=== PATIENT | female | born 1935 | race Caucasian/White ===

== ENCOUNTER 2017-04-25 02:21 | Emergency (ER) | payer MEDICARE, OTHER ==
[~2017-04-25] VITALS: Ht 149.9 cm; Wt 87.3 kg
[~2017-04-25 02:21] MED LIST: ACETAMINOPHEN-1 EAC1 PO; ACETAMINOPHEN325 M1 PO; ALBUTEROL2.5 MG/0.5 INH; ALDACTONE25 MG PO; ALLOPURINOL100 MG PO; AMLODIPINE BESYL5 MG PO; ASPIRIN EC81 MG PO; BENADRYL25 MG PO; CELEXA20 MG PO; CELEXA40 MG PO; CENTRUM SILVER1 EAC3 PO; CLONIDINE HCL0.1 MG PO; CLONIDINE HCL0.2 MG PO; COUMADIN2.5 MG PO; COUMADIN5 MG PO; DEMADEX10 MG PO; DIABETA5 MG PO; DOXYCYCLINE HY100 MG PO; FOLIC ACID0.8 MG PO; FOLIC ACID1 MG PO; GLYBURIDE2.5 MG PO; GLYBURIDE5 MG PO; HUMULIN N100 UNIT/1 SQ; HYDROCODON-ACE1 EA10 PO; IRON325 M1 PO; LASIX40 MG PO; LEVAQUIN500 MG PO; LEVOTHYROXINE100 MCG PO; LOVASTATIN20 MG PO; METOPROLOL TAR100 MG PO; METOPROLOL TART25 MG PO; METOPROLOL TART50 MG PO; MULTI VITAMIN1 EACH PO; NEURONTIN300 MG PO; NORCO 5-325 TA1 EACH PO; NOVOLIN 70100 UNITS/ SUB-Q; OMEPRAZOLE20 M1 PO; OMEPRAZOLE20 MG PO; PERFOROMIS20 MCG/2 M IH; PULMICORT0.25 MG/2 IH; SPIRONOLACTONE25 MG PO; TORSEMIDE20 MG PO; TORSEMIDE5 MG PO; TUDORZA PRESS400 MCG IH; TYLENOL WITH C1 EACH PO; TYLENOL325 MG PO; VITAMIN D31000 UNI1 PO
[2017-04-25] MEDS ORDERED: FEOSOL325 MG PO (02:54)
[2017-04-25] MEDS ORDERED: FOLIC ACID0.4 MG PO (02:55)
[2017-04-25] MEDS ORDERED: NORVASC5 MG PO (02:56)
[2017-04-25] MEDS ORDERED: PERFOROMIS20 MCG/2 M INH (02:57)
[2017-04-25] MEDS ORDERED: SERTRALINE HCL50 MG PO (03:03)
--- NOTE | 2017-04-25 17:59 | EKG ---
[facility] [address] [place] [address] Signed Atrial fibrillation Abnormal ECG When compared with ECG of 24-JAN-2016 10:28, Atrial fibrillation has replaced Sinus rhythm Nonspecific T wave abnormality has replaced inverted T waves in Anterior leads QT has shortened Confirmed by CATERINA CISNEROS MD ([id number]) on 04/25/2017 5:59:08 PM Electronically Signed By: CATERINA CISNEROS MD 04/25/17 1759 PATIENT NAME: JESUS VÁSQUEZ JANELLE Electrocardiogram DATE OF : 33 PHYSICIAN: CATERINA CISNEROS MD REPORT #: [id number] REPORT IS CONFIDENTIAL AND NOT TO BE RELEASED WITHOUT AUTHORIZATION
== END 2017-04-25 05:58 | disposition home or self-care (01) ==
LOC: ED 02:21
DX: R07.89 Other chest pain (principal); I25.2 Old myocardial infarction; E11.40 Type 2 diabetes mellitus with diabetic neuropathy, unspecified; Z87.891 Personal history of nicotine dependence; Z91.041 Radiographic dye allergy status; Z88.0 Allergy status to penicillin; Z88.8 Allergy status to other drugs, medicaments and biological substances; Z88.2 Allergy status to sulfonamides; Z88.5 Allergy status to narcotic agent; Z79.4 Long term (current) use of insulin; Z79.899 Other long term (current) drug therapy
CPT/HCPCS: 71045; 80053; 84484; 85025; 93005; 93010; 99284

== ENCOUNTER 2018-06-12 11:35 | Emergency (ER) | payer MEDICARE, OTHER ==
[~2018-06-12] VITALS: Ht 149.9 cm; Wt 87.3 kg
--- OUTSIDE RECORDS SUMMARY | ~2018-06-12 | XMS | Clinical Summary ---
Demographics + + + | Address | [address] | | | [place] [address] | + + + | Home Phone | | + + + | Preferred Language | Unknown | + + + | Marital Status | | + + + | Orthodox Affiliation | 1009 | + + + | Race | Unknown | + + + | Ethnic Group | Unknown | + + + Author + + + | Author | [facility] | | | and [place] | + + + | Organization | [facility] | | | and [place] | + + + | Address | Unknown | + + + | Phone | Unavailable | + + + Support + + + + + | Name | Relationship | Address | Phone | + + + + + | Erik Gomes | ECON | [address] | | | | | [place] | | | | | [address] | | + + + + + | Kusum Rice | ECON | [place] | | | | | [address] | | + + + + + Care Team Providers + +------+ + | Care Wash Tank Tender Name | Role | Phone | + +------+ + | Juan Paez MD | PP | | + +------+ + Allergies + + + + + + | Active Allergy | Reactions | Severity | Noted | Comments | | | | | Date | | + + + + + + | Clindamycin Hcl | Hives | Low | 05/12/19 | | | | | | 12 | | + + + + + + | Iodine | Hives | Medium | | "I went in to | | | | | | shock after IV dye | | | | | | for pyelogram" | + + + + + + | Penicillin V | Swelling | Low | | "My arm swelled up | | Potassium | | | | after the | | | | | | injection" | + + + + + + | Pentazocine Lactate | Nausea And Vomiting | Low | | "Talwin" | + + + + + + Medications + + + +---------+------+------+-------+ | Medication | Sig | Dispensed | Refills | Star | End | Statu | | | | | | t | Date | s | | | | | | Date | | | + + + +---------+------+------+-------+ | DiphenhydrAMINE | TABS: As needed | | 0 | 09/1 | | Activ | | HCl (BENADRYL PO) | | | | 4/20 | | e | | | | | | 12 | | | + + + +---------+------+------+-------+ | levothyroxine | 1 tablet by mouth | | 0 | 06/2 | | Activ | | (LEVOTHROID) 100 mcg | once daily five days | | | 2/20 | | e | | tablet | a week | | | 10 | | | + + + +---------+------+------+-------+ | glyBURIDE | Take 5 mg by mouth 2 | | 0 | 09/1 | | Activ | | (DIABETA) 5 mg | times daily. | | | 4/20 | | e | | tablet | | | | 12 | | | + + + +---------+------+------+-------+ | omeprazole | Take 10 mg by mouth | | 0 | 09/1 | | Activ | | (PRILOSEC) 10 mg | Daily. | | | 4/20 | | e | | capsule | | | | 12 | | | + + + +---------+------+------+-------+ | multivitamin | 1 tablet by mouth | | 0 | 09/1 | | Activ | | (THERAGRAN) per | once daily | | | 4/20 | | e | | tablet | | | | 12 | | | + + + +---------+------+------+-------+ | citalopram | Take 20 mg by mouth | | 0 | 10/09 | | Activ | | (CELEXA) 40 mg | every morning. | | | 05/28 | | e | | tablet | | | | 12 | | | + + + +---------+------+------+-------+ | FOLIC ACID PO | Take 3 tablets by | | 0 | 10/09 | | Activ | | | mouth Daily. | | | 05/28 | | e | | | | | | 12 | | | + + + +---------+------+------+-------+ | allopurinol | Take 200 mg by mouth | | 0 | 10/09 | | Activ | | (ZYLOPRIM) 100 mg | 2 times daily. | | | 05/28 | | e | | tablet | | | | 12 | | | + + + +---------+------+------+-------+ | gabapentin | Take by mouth. 300 | | 0 | 10/09 | | Activ | | (NEURONTIN) 300 mg | mg in AM, 600 mg at | | | 4 | | e | | capsule | night. | | | 12 | | | + + + +---------+------+------+-------+ | | Take 1-2 tablets by | | 0 | | | Activ | | HYDROcodone-acetamin | mouth every 6 hours | | | | | e | | ophen (NORCO) 5-325 | as needed for Pain. | | | | | | | mg per tablet | | | | | | | + + + +---------+------+------+-------+ | cloNIDine | Take 0.1 mg by mouth | | 0 | | | Activ | | (CATAPRES) 0.1 mg | 2 times daily. 1/2 | | | | | e | | tablet | tab twice daily if | | | | | | | | BP is over 160. | | | | | | + + + +---------+------+------+-------+ | Respiratory | Increase IPAP max to | 1 each | 0 | 12/2 | | Activ | | Therapy Supplies | 18 cm H2O and | | | 2/20 | | e | | MISCIndications: | increase PS to 6 cm | | | 14 | | | | Obstructive sleep | H2O for lifetime. | | | | | | | apnea (adult) | Dx: 327.23 | | | | | | | (pediatric) | | | | | | | + + + +---------+------+------+-------+ | insulin | Inject 43 Units | | 0 | | | Activ | | NPH-insulin regular | under the skin 2 | | | | | e | | 70/30 (HUMULIN, | times daily (before | | | | | | | NOVOLIN 70/30) 100 | meals). | | | | | | | units/mL injection | | | | | | | + + + +---------+------+------+-------+ | Probiotic Product | Take 1 tablet by | | 0 | | | Activ | | (PROBIOTIC DAILY PO) | mouth Daily. As | | | | | e | | | needed | | | | | | + + + +---------+------+------+-------+ | oxygen | Inhale 4 L into the | | 0 | | | Activ | | | lungs continuous. 4L | | | | | e | | | when awake and 3L | | | | | | | | when sleeping | | | | | | + + + +---------+------+------+-------+ | torsemide | Take 20 mg by mouth | | 0 | 04/1 | | Activ | | (DEMADEX) 10 mg | 2 times daily. Take | | | 9/20 | | e | | tablet | 2 tablets twice | | | 16 | | | | | daily | | | | | | + + + +---------+------+------+-------+ | lovastatin | Take 60 mg by mouth | | 0 | | | Activ | | (MEVACOR) 20 mg | nightly. | | | | | e | | tablet | | | | | | | + + + +---------+------+------+-------+ | cholecalciferol | Take 1,000 Units by | | 0 | | | Activ | | (VITAMIN D-3) 1000 | mouth Daily. | | | | | e | | UNITS TABS | | | | | | | + + + +---------+------+------+-------+ | spironolactone | Take 25 mg by mouth | | 0 | | | Activ | | (ALDACTONE) 25 mg | 2 times daily. | | | | | e | | tablet | | | | | | | + + + +---------+------+------+-------+ | metoprolol | Take 100 mg by mouth | | 0 | | | Activ | | tartrate (LOPRESSOR) | 2 times daily. | | | | | e | | 100 mg tablet | | | | | | | + + + +---------+------+------+-------+ | ferrous sulfate | Take 325 mg by mouth | | 0 | | | Activ | | 325 mg tablet | daily (with | | | | | e | | | breakfast). | | | | | | + + + +---------+------+------+-------+ | amLODIPine | Take 5 mg by mouth | | 0 | | | Activ | | (NORVASC) 5 mg | Daily. | | | | | e | | tablet | | | | | | | + + + +---------+------+------+-------+ | ondansetron | Take 4 mg by mouth | | 0 | | | Activ | | (ZOFRAN ODT) 4 mg | every 4 hours as | | | | | e | | disintegrating | needed for Nausea. | | | | | | | tablet | | | | | | | + + + +---------+------+------+-------+ Active Problems + + + | Problem | Noted Date | + + + | Brain lesion | 01/24/2016 | + + + | Elevated troponin | 01/24/2016 | + + + | DM II (diabetes mellitus, type II), controlled | 01/24/2016 | + + + | COPD (chronic obstructive pulmonary disease) | 01/24/2016 | + + + | MIKALA (obstructive sleep apnea) | 01/24/2016 | + + + | Nausea | 01/24/2016 | + + + | Chronic hypoxemic respiratory failure | 06/20/2015 | + + + | Epistaxis, recurrent | 12/19/2014 | + + + | Dysphagia | 03/13/2014 | + + + | Vitamin D deficiency | 01/26/2014 | + + + | Paroxysmal atrial fibrillation | 08/15/2013 | + + + | Bradycardia | 08/15/2013 | + + + | Secondary hyperparathyroidism of renal origin | 08/05/2012 | + + + | Gout | 03/06/2011 | + + + | Iron deficiency anemia | 03/06/2011 | + + + | Hypoxemia | | + + + | Pulmonary hypertension | | + + + | COPD (chronic obstructive pulmonary disease) | | + + + | MIKALA on BiPAP | | + + + | Diabetes mellitus, type 2 | | + + + | Hypertension | | + + + | Hypothyroidism | | + + + | Hyperlipidemia | | + + + | Depression | | + + + | Gastroesophageal reflux disease | | + + + | Osteoarthritis | | + + + | Chronic kidney disease | | + + + + + | Overview: close to dialysis, followed by Dr. Gómez | + + + +---+ | Cataracts, bilateral | | + +---+ | CAD (coronary artery disease) | | + +---+ + + | Overview: s/p [place] in 1994, negative stress test 12/17/2011 | + + Resolved Problems + + + + | Problem | Noted | Resolved | | | Date | Date | + + + + | CHRONIC OBSTRUCTIVE PULMONARY DISEASE, ACUTE EXACERBATION | 05/12/19 | | | | 12 | 3 | + + + + Immunizations + + + + | Name | Dates Previously Given | Next Due | + + + + | INFLUENZA PF 18 Y OR | 11/19/2014, 12/05/2013, 01/08/2013, | | | >,TRIVALENT | 11/09/2011, 11/09/2010 | | | RECOMBINANT | | | + + + + | PNEUMOCOCCAL | 02/22/2014 | | | CONJUGATE 13-VALENT | | | | (PCV13) | | | + + + + | PNEUMOCOCCAL | 02/08/2009, 11/09/2006 | | | POLYSACCHARIDE | | | | 23-VALENT (PPSV23) | | | + + + + | TDAP, (ADOL/ADULT) | 10/14/2011 | | + + + + Family History + +------+ + + | Relation | Name | Status | Comments | + +------+ + + | Father | | | | + +------+ + + | Mother | | | | + +------+ + + Social History + + + +--------+ + | Tobacco Use | Types | Packs/Day | Years | Date | | | | | Used | | + + + +--------+ + | Former Smoker | Cigarettes | 0.3 | 44 | Quit: 11/09/2001 | + + + +--------+ + + +---+---+---+ | Smokeless Tobacco: | | | | | Never Used | | | | + +---+---+---+ + + | Tobacco Cessation: Counseling Given: No | + + + + +---------+ + | Alcohol Use | Drinks/We | oz/Week | Comments | | | ek | | | + + +---------+ + | No | 0 | 0.0 | | | | Standard | | | | | drinks or | | | | | | | | | | equivalen | | | | | t | | | + + +---------+ + + + + | Sex Assigned at | Date Recorded | | | | + + + | Not on file | | + + + + + + + | Job Start Date | Occupation | Industry | + + + + | Not on file | Not on file | Not on file | + + + + + + + + | Travel History | Travel Start | Travel End | + + + + + + | No recent travel history available. | + + Last Filed Vital Signs + + + + | Vital Sign | Reading | Time Taken | + + + + | Blood Pressure | 138/88 | 01/27/2016 1200 PST | + + + + | Pulse | 71 | 01/27/20161003 PST | + + + + | Temperature | 36.8 C (98.2 F) | 01/27/2016699 PST | + + + + | Respiratory Rate | 20 | 01/27/2016699 PST | + + + + | Oxygen Saturation | 96% | 01/27/20161003 PST | + + + + | Inhaled Oxygen | - | - | | Concentration | | | + + + + | Weight | 81.6 kg (179 lb 14.3 | 01/26/2016331 PST | | | oz) | | + + + + | Height | 152.4 cm (5') | 01/24/20161448 PST | + + + + | Body Mass Index | 35.13 | 01/24/20161448 PST | + + + + Plan of Treatment + + + + + | Health Maintenance | Due Date | Last Done | Comments | + + + + + | Vaccine: Zoster (1 | | | | | of 2) | 5 | | | + + + + + | Vaccine: Influenza | | 11/19/2014, 12/05/2013, | | | (Season Ended) | 9 | 01/08/2013, Additional history | | | | | exists | | + + + + + | Vaccine: | | 10/14/2011 | | | Dtap/Tdap/Td (2 - | 2 | | | | Td) | | | | + + + + + | Vaccine: | Completed | 02/22/2014, 02/08/2009, | | | Pneumococcal 65+ | | 11/09/2006 | | | Low/Medium Risk | | | | + + + + + Results Not on filefrom Last 3 Months Insurance + +--------+ +--------+ +---------+--------+ | Payer | Benefi | Subscriber | Effect | Phone | Address | Type | | | t Plan | ID | therese | | | | | | / | | Dates | | | | | | Group | | | | | | + +--------+ +--------+ +---------+--------+ | MEDICARE | MEDICA | [id number] | 02/08/19 | [phone] | | Medica | | | RE | | 00-Pre | 5 | | re | | | PART A | | sent | | | | | | AND B | | | | | | + +--------+ +--------+ +---------+--------+ | COMMERCIAL GENERIC | COMMER | [id number] | | | | PPO | | | CIAL | | 015-Pr | | | | | | PPO | | esent | | | | | | OTHER | | | | | | + +--------+ +--------+ +---------+--------+ + +--------+ +--------+ + + | Guarantor Name | Accoun | Relation to | Date | Phone | Billing Address | | | t Type | Patient | of | | | | | | | | | | + +--------+ +--------+ + + | GomesMandy Soni | Person | Self [birth year] | [address] | | | al/Fam | | 1936 | [phone] | [place] [address] | | | [facility] | | | [address] (Home) | | + +--------+ +--------+ + + Advance Directives Patient has advance care planning documents, and code status on file. For more information, please contact:[facility] [place] [address] + + + + + | Code Status | Date | Date | Comments | | | Activated | Inactivated | | + + + + + | Full Code | 01/24/2016 | 01/27/2016 | | | | 15:51 | 17:26 | | + + + + +
--- OUTSIDE RECORDS SUMMARY | ~2018-06-12 | XMS | Clinical Summary ---
Demographics + + + | Address | [address] | | | [place] [address] | + + + | Home Phone | | + + + | Preferred Language | Unknown | + + + | Marital Status | | + + + | Gnosticist Affiliation | Unknown | + + + | Race | Unknown | + + + | Ethnic Group | Unknown | + + + Author + + + | Author | [facility] | + + + | Organization | [facility] | + + + | Address | Unknown | + + + | Phone | Unavailable | + + + Support + + + + + | Name | Relationship | Address | Phone | + + + + + | Erik Gomes | ECON | [address] | | | | | [place] | | | | | [phone] | | + + + + + | Kusum Rice | ECON | Unknown | | + + + + + Care Team Providers + +------+ + | Care Chief Specialist Leed Name | Role | Phone | + +------+ + | Collins Paez MD | PP | | + +------+ + Allergies + + + + + + | Active Allergy | Reactions | Severity | Noted | Comments | | | | | Date | | + + + + + + | Clindamycin | Nausea Only | Low | 03/06/19 | | | | | | 12 | | + + + + + + | Iodine | Other (See Comments) | | 08/23/19 | abstracted | | | | | 11 | | + + + + + + | Penicillins | Other (See Comments) | | 08/23/19 | abstracted | | | | | 11 | | + + + + + + | Pentazocine Lactate | Other (See Comments) | | 08/23/19 | abstracted | | | | | 11 | | + + + + + + Current Medications + + +--------+---------+------+------+-------+ | Prescription | Sig. | Disp. | Refills | Star | End | Statu | | | | | | t | Date | s | | | | | | Date | | | + + +--------+---------+------+------+-------+ | levothyroxine | Take 100 mcg by | | | | | Activ | | (SYNTHROID, | mouth daily. 6 days | | | | | e | | LEVOTHROID) 100 MCG | a week | | | | | | | tablet | | | | | | | + + +--------+---------+------+------+-------+ | glyBURIDE | Take 5 mg by mouth | | | | | Activ | | (DIABETA) 5 MG | daily with | | | | | e | | tablet | breakfast. | | | | | | + + +--------+---------+------+------+-------+ | gabapentin | Take 300 mg by mouth | | | | | Activ | | (NEURONTIN) 300 MG | 2 (two) times | | | | | e | | capsule | daily. Taking one | | | | | | | | tablet in AM and two | | | | | | | | tablets in PM | | | | | | + + +--------+---------+------+------+-------+ | folic acid | Take 2,400 mcg by | | | | | Activ | | (FOLVITE) 800 MCG | mouth daily. | | | | | e | | tablet | | | | | | | + + +--------+---------+------+------+-------+ | Multiple | Take 1 tablet by | | | | | Activ | | Vitamins-Minerals | mouth daily. | | | | | e | | (MULTIVITAMIN,TX-MIN | | | | | | | | ERALS) tablet | | | | | | | + + +--------+---------+------+------+-------+ | Aclidinium [place] | Inhale into the | | | | | Activ | | (STACY NEVAREZ) | lungs. | | | | | e | | 400 MCG/ACT AEPB | | | | | | | + + +--------+---------+------+------+-------+ | albuterol | Take 2.5 mg by | | | | | Activ | | (PROVENTIL) (2.5 | nebulization every 6 | | | | | e | | MG/3ML) 0.083% | (six) hours as | | | | | | | nebulizer solution | needed. | | | | | | + + +--------+---------+------+------+-------+ | allopurinol | Take 100 mg by mouth | | | 12/2 | | Activ | | (ZYLOPRIM) 100 MG | 2 (two) times | | | 6/20 | | e | | tablet | daily. | | | 13 | | | + + +--------+---------+------+------+-------+ | formoterol | Take 2 mLs by | | | 03/1 | | Activ | | (PERFOROMIST) 20 | nebulization every | | | 4/20 | | e | | MCG/2ML nebulizer | 12 (twelve) hours. | | | 14 | | | | solution | | | | | | | + + +--------+---------+------+------+-------+ | cloNIDine | Take 0.1 mg by mouth | | | | | Activ | | (CATAPRES) 0.1 MG | 2 (two) times | | | | | e | | tablet | daily. Taking two | | | | | | | | tablet BID | | | | | | + + +--------+---------+------+------+-------+ | | Take 1 tablet by | | | | | Activ | | HYDROcodone-acetamin | mouth every 6 (six) | | | | | e | | ophen (NORCO) 5-325 | hours as needed for | | | | | | | MG per tablet | Pain. | | | | | | + + +--------+---------+------+------+-------+ | metoprolol | Take 50 mg by mouth | | | | | Activ | | (LOPRESSOR) 100 MG | 2 (two) times daily. | | | | | e | | tablet | | | | | | | + + +--------+---------+------+------+-------+ | Cholecalciferol | Take 1,000 Units by | | | | | Activ | | 1000 UNITS capsule | mouth daily. | | | | | e | + + +--------+---------+------+------+-------+ | ferrous sulfate, | Take 65 mg of iron | | | | | Activ | | 65 FE, 324 (65 FE) | by mouth as needed. | | | | | e | | MG EC tablet | PRN with nose bleeds | | | | | | + + +--------+---------+------+------+-------+ | insulin | Inject 40 Units into | | | | | Activ | | NPH-insulin regular | the skin 2 (two) | | | | | e | | (NOVOLIN 70/30) | times daily before | | | | | | | (70-30) 100 UNIT/ML | meals. | | | | | | | injection | | | | | | | + + +--------+---------+------+------+-------+ | lovastatin | Take 60 mg by mouth | | | | | Activ | | (MEVACOR) 20 MG | nightly. | | | | | e | | tablet | | | | | | | + + +--------+---------+------+------+-------+ | citalopram | Take 20 mg by mouth | | | | | Activ | | (CELEXA) 20 MG | every morning. | | | | | e | | tablet | | | | | | | + + +--------+---------+------+------+-------+ | omeprazole | Take 10 mg by mouth | | | | | Activ | | (PRILOSEC) 20 MG | every morning before | | | | | e | | capsule | breakfast. | | | | | | + + +--------+---------+------+------+-------+ | diphenhydrAMINE | Take 25 mg by mouth | | | | | Activ | | (BENADRYL) 25 mg | nightly as needed | | | | | e | | capsule | for Itching. | | | | | | + + +--------+---------+------+------+-------+ | spironolactone | TAKE ONE TABLET BY | 60 | 0 | 06/0 | | Activ | | (ALDACTONE) 25 MG | MOUTH TWICE DAILY | tablet | | 7/20 | | e | | tablet | | | | 17 | | | + + +--------+---------+------+------+-------+ | torsemide | TAKE ONE TABLET BY | 60 | 11 | 08/09 | | Activ | | (DEMADEX) 20 MG | MOUTH TWICE DAILY | tablet | | 08/27 | | e | | tablet | | | | 17 | | | + + +--------+---------+------+------+-------+ Active Problems + + + | Problem | Noted Date | + + + | Essential hypertension, benign | 07/16/2015 | + + + + + | Last Assessment & Plan: Hypertension, controlled, continue | | current meds at current doses (clonidine, metoprolol, | | spironolactone, torsemide). | + + + + + | Dyslipidemia | 07/16/2015 | + + + + + | Last Assessment & Plan: Hyperlipidemia, at goal, continue | | current meds at current dose (lovastatin). Recent labs reviewed | | with patient.Lab, 06/03/2015: T Chol: 146, LDL-Chol: 57, HDL-Chol: | | 46, Tri Liver enzymes NML, K: | | 3.8, BUN/Cr: 23/1.5 (GFR 35), glu: 106 | | TSH: 2.95, HgbA1c: 6.3, WBC: 7.4, H/H: 14.3/45.4, plt: 171 | + + + + + | Diabetes mellitus type I | 07/16/2015 | + + + + + | Last Assessment & Plan: DM2, managed by PCP. | + + + + + | Bilateral edema of lower extremity | 07/15/2015 | + + + | Proteinuria | 07/15/2015 | + + + | Heart failure with preserved ejection fraction (HCC) | 05/09/2015 | + + + + + | Last Assessment & Plan: HFpEF. 79yo WF, pleasant, | | somewhat forgetful. She has a history of congestive heart | | failure, chronic edema, but despite this her cardiac workup | | suggests normal ejection fraction, no significant ischemia. She | | has complex medical comorbidities. She is relatively sedentary, | | today she is brought in a wheelchair for ease of transportation, | | she is able to stand on her own. Her edema is essentially | | unchanged, she does not have any orthopnea or PND, however she | | does have exertional shortness of breath and fatigue. No chest | | discomfort is reported. Any palpitations or lightheadedness. | | She denies any new visual disturbances, dysarthria, dysphasia, | | lateralizing signs or symptoms. Although she she does mention a | | recent visit to emergency room, was not feeling well, had some | | difficulty with speech, she states that an MRI was not performed, | | she does not recall a CT scan of her head was performed or not. | | In our discussions with her, she does not recall that she's had | | a previous cardiac workup as well. She does state however she | | does have heart problems, retaining fluid, water on her lungs. | | She was previously seen by one of our cardiologists. Her workup | | is reviewed. I believe her medical therapy as appropriate as | | time. She does have other complicated medical comorbidities, and | | for this reason no further cardiac workup was pursued. She is | | encouraged to restrict her dietary sodium (salt) consumption. | | She is to continue weighing herself daily, she states that her | | usual weight is around 195 pounds. Tolerating medications. No | | changes in therapy. She'll be followed clinically.Last Cath: | | naLast Echo, 04/19/2015 ([facility]): TDS, mild concentric LVH, | | LVEF 65-70%, moderate TR, mild Pulmonary HTN.Last Stress Test, | | 12/17/2011 ([facility] ): Lexiscan, breast attenuation, no | | ischemia, LVEF 76%.ECG, 04/17/2015 ( [facility]): sinus | | bradycardia, 50bpm, 1st degree AVB, PVC's. | + + + + + | Atrial fibrillation, chronic | 04/12/2015 | + + + + + | Last Assessment & Plan: [facility] [facility], today she is in sinus | | rhythm. CHADS2 Score 4 (CHF, HTN, age, DM). On ASA, Hx | | epistaxis. | + + + + + | Vitamin D deficiency | 01/26/2014 | + + + | Secondary hyperparathyroidism, renal | 08/05/2012 | + + + | SHEA (acute kidney injury) | 12/14/2011 | + + + | CKD (chronic kidney disease) stage 3, GFR 30-59 ml/min | 03/06/2011 | + + + + + | Last Assessment & Plan: CKD, Stage 3, followed by Dr Gómez. | + + + + + | Gout | 03/06/2011 | + + + | Iron deficiency | 03/06/2011 | + + + Resolved Problems + + + + | Problem | Noted | Resolved | | | Date | Date | + + + + | CKD (chronic kidney disease), stage III | 07/15/19 | | | | 16 | 6 | + + + + | Hospital discharge follow-up | 04/12/19 | | | | 16 | 6 | + + + + Social History + +-------+ +--------+ + | Tobacco Use | Types | Packs/Day | Years | Date | | | | | Used | | + +-------+ +--------+ + | Former Smoker | | | | Quit: 10/20/2005 | + +-------+ +--------+ + + +---+---+---+ | Smokeless Tobacco: | | | | | Never Used | | | | + +---+---+---+ + + +---------+ + | Alcohol Use [...] on file | | + + + Last Filed Vital Signs + + + + | Vital Sign | Reading | Time Taken | + + + + | Blood Pressure | 127/62 | 11/04/2015 2:06 PM PDT | + + + + | Pulse | 54 | 11/04/2015 2:06 PM PDT | + + + + | Temperature | 36.2 C (97.1 F) | 11/04/2015 2:06 PM PDT | + + + + | Respiratory Rate | 19 | 07/15/2015 12:09 PM PDT | + + + + | Oxygen Saturation | 87% | 11/04/2015 2:06 PM PDT | + + + + | Inhaled Oxygen | - | - | | Concentration | | | + + + + | Weight | 86.7 kg (191 lb 3.2 | 11/04/2015 2:06 PM PDT | | | oz) | | + + + + | Height | 152.4 cm (5') | 11/04/2015 2:06 PM PDT | + + + + | Body Mass Index | 37.34 | 11/04/2015 2:06 PM PDT | + + + + Plan of Treatment + + + + + | Health Maintenance | Due Date | Last Done | Comments | + + + + + | Diabetic Eye Exam | | | | | | 5 | | | + + + + + | Diabetic Foot Exam | | | | | | 5 | | | + + + + + | Vaccine: Zoster (1 | | | | | of 2) | 5 | | | + + + + + | DEXA SCAN SCREENING | | | | | | 0 | | | + + + + + | Hemoglobin A1c | | 01/30/2016, 06/04/2015, | | | | 7 | 09/12/2013, Additional history | | | | | [...] filefrom Last 3 Months Insurance + +--------+ +------+-------+ + | Payer | Benefi | Subscriber | Type | Phone | Address | | | t Plan | ID | | | | | | / | | | | | | | Group | | | | | + +--------+ +------+-------+ + | MEDICARE | MEDICA | [id number] | | | [address] | | | RE | | | | [place], [place] [address] | | | IP-OP | | | | | + +--------+ +------+-------+ + | COMMERCIAL OTHER | COMMER | [id number] | | | | | | CIAL | | | | | | | GENERI | | | | | | | C PLAN | | | | | + +--------+ +------+-------+ + + +--------+ +--------+ + + | Guarantor Name | Accoun | Relation to | Date | Phone | Billing Address | | | t Type | Patient | of | | | | | | | | | | + +--------+ +--------+ + + | MANDY GOMES | Person | Self [birth year] Home: | [address] | | | al/Fam | | 1936 | [phone] [place] | | | [place] | | | [phone] | [phone] | + +--------+ +--------+ + +"
--- OUTSIDE RECORDS SUMMARY | ~2018-06-12 | XMS | Clinical Summary ---
Demographics + + + | Address | [address] | | | [place] [address] | + + + | Home Phone | | + + + | Preferred Language | Unknown | + + + | Marital Status | | + + + | Christianity Affiliation | Unknown | + + + | Race | Unknown | + + + | Ethnic Group | Unknown | + + + Author + + + | Author | [facility] | + + + | Organization | [facility] | + + + | Address | Unknown | + + + | Phone | Unavailable | + + + Support + + + + + | Name | Relationship | Address | Phone | + + + + + | Erik Gomes | ECON | [address] | | | | | [place] | | | | | [address] | | + + + + + | Kusum Rice | ECON | Unknown | | + + + + + Care Team Providers + +------+ + | Care Garbage Pick Up Man Name | Role | Phone | + [...] | | + + +--------+---------+------+------+-------+ | Aclidinium [place] | Inhale into the | | | [...] clinically.Last Cath: | | naLast Echo, 04/19/2015 ([facility]): TDS, mild concentric LVH, | | LVEF 65-70%, moderate TR, mild Pulmonary HTN.Last Stress Test, | | 12/17/2011 ([facility], ): Lexiscan, breast attenuation, no | | [...] +------+-------+ + | MEDICARE | MEDICA | [id number] | | | [address] | | | RE | | | | [place], [place] [address] | | | IP-OP | | | | | + +--------+ +------+-------+ + | COMMERCIAL OTHER | COMMER | [id number] | | | | | | CIAL [...] | [birth year] | Home: | [address] | | | al/Fam | | 1936 | [phone] | [place] | | | [place] | | | [phone] | [phone] | + +--------+ +--------+ + +"
--- OUTSIDE RECORDS SUMMARY | ~2018-06-12 | XMS | Clinical Summary ---
Demographics + + + | Address | [address] | | | [place] [address] | + + + | Home Phone | | + + + | Preferred Language | Unknown | + + + | Marital Status | | + + + | Muslim Affiliation | [phone] | + + + | Race | Unknown | + + + | Ethnic Group | Unknown | + + + Author + + + | Author | [facility] | | | and [place] | + + + | Organization | [facility] | | | and [place] | + + + | Address | Unknown | + + + | Phone | Unavailable | + + + Support + + + + + | Name | Relationship | Address | Phone | + + + + + | Erik Gomes | ECON | [address] | | | | | [place] | | | | | [address] | | + + + + + | Kusum Rice | ECON | [place] | | | | | [phone] | | + + + + + Care Team Providers + +------+ + | Care Director Investment Banking Name | Role | Phone | + [...] + +---+ + + | Overview: s/p SD in 1994, negative stress test 12/17/2011 | [...] +--------+ +---------+--------+ | MEDICARE | MEDICA | [id number] | 02/08/19 | [phone] | | Medica | | | RE | | 00-Pre | 5 | | re | | | PART A | | sent | | | | | | AND B | | | | | | + +--------+ +--------+ +---------+--------+ | COMMERCIAL GENERIC | COMMER | [id number] | | | | PPO | | [...] | | al/Fam | | 1936 | [phone] | [place] [address] | | | [place] | | | [address] (Home) | | + +--------+ +--------+ + + Advance Directives Patient has advance care planning documents, and code status on file. For more information, please contact:[facility] [place] [address] + + + + + | Code Status | Date | Date | Comments | | | Activated | Inactivated | | + + + + + | Full Code | 01/24/2016 | 01/27/2016 | | | | 15:51 | 17:26 | | + + + + +
[~2018-06-12 11:35] MED LIST changes: +FEOSOL325 MG PO; +FOLIC ACID0.4 MG PO; +NORVASC5 MG PO; +NOVOLIN 70100 UNIT/1 SUB-Q; +PERFOROMIS20 MCG/2 M INH; +SERTRALINE HCL50 MG PO
== END 2018-06-12 14:45 | disposition home or self-care (01) ==
LOC: ED 11:35
DX: M25.551 Pain in right hip (principal); I25.2 Old myocardial infarction; J44.9 Chronic obstructive pulmonary disease, unspecified; E11.40 Type 2 diabetes mellitus with diabetic neuropathy, unspecified; I48.91 Unspecified atrial fibrillation; Z87.891 Personal history of nicotine dependence; Z90.710 Acquired absence of both cervix and uterus; Z91.041 Radiographic dye allergy status; Z88.0 Allergy status to penicillin; Z88.2 Allergy status to sulfonamides; Z88.5 Allergy status to narcotic agent; Z79.4 Long term (current) use of insulin; Z79.899 Other long term (current) drug therapy; W01.0XXA Fall on same level from slipping, tripping and stumbling without subsequent striking against object, initial encounter
CPT/HCPCS: 73502; 99283

== ENCOUNTER 2018-09-26 14:16 | Emergency (ER) | payer MEDICARE, OTHER ==
[~2018-09-26] VITALS: Ht 154.9 cm; Wt 78.2 kg
[~2018-09-26 14:16] MED LIST changes: +ASPIR 8181 MG PO; +CITALOPRAM HBR40 MG PO
--- OUTSIDE RECORDS SUMMARY | 2018-09-26 14:18 | XMS ---
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 E.D. VISIT COUNT (12 MO.) 4 [facility] TOTAL 4 NOTE: Visits indicate total known visits. ED/UCC VISIT TRACKING (12 MO.) 09/26/2018 14:16 [facility] [place] TYPE: Emergency COMPLAINT: - HIP PAIN 09/24/2018 16:23 [facility] [place] TYPE: Emergency COMPLAINT: - HIP PAIN/NON INJURY 08/28/2018 10:01 [facility] [place] TYPE: Emergency COMPLAINT: - HIP PAIN NON INJURY DIAGNOSES: - Old myocardial infarction - Acquired absence of both cervix and uterus - Type 2 diabetes mellitus with diabetic neuropathy, unspecified - Allergy status to sulfonamides status - Allergy status to analgesic agent status - Allergy status to other drugs, medicaments and biological substances status - Radiographic dye allergy status - Chronic obstructive pulmonary disease, unspecified - Allergy status to penicillin - long term (current) use of insulin - Pain in right hip - Personal history of nicotine dependence - Other senior care (current) drug therapy 06/12/2018 11:36 [facility] [place] TYPE: Emergency COMPLAINT: - FALL/HIP PAIN DIAGNOSES: - Pain in right hip - Radiographic dye allergy status - Personal history of nicotine dependence - Chronic obstructive pulmonary disease, unspecified - Allergy status to sulfonamides status - Acquired absence of both cervix and uterus - long term (current) use of insulin - Type 2 diabetes mellitus with diabetic neuropathy, unspecified - Allergy status to narcotic agent status - Old myocardial infarction - Unspecified atrial fibrillation - Fall on same level from slipping, tripping and stumbling without subsequent striking against object, initial encounter - Allergy status to penicillin - Other senior care (current) drug therapy INPATIENT VISIT TRACKING (12 MO.) No inpatient visits to display in this time frame [email or web address]
--- NOTE | 2018-09-27 07:17 | CONS ---
[facility] [address] [place], [place] [address] Signed DATE OF CONSULTATION: Requested by the emergency room provider. The patient is an 82-year-old white female who actually fell, it sounds like about two weeks ago. She has been having increasing pain and difficulty with ambulation ever since. She is actually in the emergency room a couple of days ago with hip pain. She was evaluated to have some osteoarthritis and was discharged home. She returns today because of increasing pain and inability to ambulate. Repeat x-rays clearly show a femoral neck fracture, confirmed with a CT scan. I met with the patient and her family. She previously had a left total hip on the left side done here in [place]. However, she apparently became a chronic recurrent dislocator and had to have it revised in [place]. At this time, I discussed with her, the nature of her injury and the fact that she probably will need to consider a total hip replacement, given the amount of arthritis seen in the hip joint. I explained the treatment alternatives along with all the potential risks, benefits, and complications. They have a family discussion and it would appear that the family would be more comfortable if she were to be transferred to [facility] in [place]. surgical procedures done including a daughter who had a hip replacement at [facility] that worked out very well. We told them that the ER staff, until we arrange for her transfer to [facility]. MD SOLA Garcia/MASON /[phone] Copies: ~ Electronically Signed By: JAMEL HICKEY MD 09/27/18 0717 PATIENT NAME: JESUS VÁSQUEZ JANELLE CONSULTATION DATE OF : 33 REPORT #: [id number] PHYSICIAN: JAMEL HICKEY MD PCP: LIZZIE COVINGTON MD REPORT IS CONFIDENTIAL AND NOT TO BE RELEASED WITHOUT AUTHORIZATION
--- NOTE | 2018-09-27 13:56 | EKG ---
[facility] [address] [place] [address] Signed Sinus bradycardia with 1st degree AV block Otherwise normal ECG When compared with ECG of 25-APR-2017 02:23, Sinus rhythm has replaced Atrial fibrillation Vent. rate has decreased BY 44 BPM Nonspecific T wave abnormality no longer evident in Inferior leads Nonspecific T wave abnormality no longer evident in Lateral leads Confirmed by SERGIO CUELLAR DO ([id number]) on 09/27/2018 1:56:26 PM Electronically Signed By: SERGIO CUELLAR DO 09/27/18 1356 PATIENT NAME: JESUS VÁSQUEZ JANELLE Electrocardiogram DATE OF : 33 PHYSICIAN: SERGIO CUELLAR DO REPORT #: [id number] REPORT IS CONFIDENTIAL AND NOT TO BE RELEASED WITHOUT AUTHORIZATION
== END 2018-09-26 21:25 | disposition short-term general hospital (02) ==
LOC: ED 14:16
PROC: 0T2BX0Z Change Drainage Device in Bladder, External Approach (ICD-10-PCS; principal; 2018-09-26)
DX: S72.001A Fracture of unspecified part of neck of right femur, initial encounter for closed fracture (principal); I25.2 Old myocardial infarction; E11.40 Type 2 diabetes mellitus with diabetic neuropathy, unspecified; Z87.891 Personal history of nicotine dependence; Z88.0 Allergy status to penicillin; Z88.2 Allergy status to sulfonamides; Z88.6 Allergy status to analgesic agent; Z88.8 Allergy status to other drugs, medicaments and biological substances; Z91.041 Radiographic dye allergy status; W18.30XA Fall on same level, unspecified, initial encounter
CPT/HCPCS: 51702; 71045; 74176; 80053; 81001; 85025; 93005; 93010; 99285-25; J1170; J1885; J7030

== ENCOUNTER 2019-08-01 01:45 | Emergency (ER) | payer MEDICARE, OTHER ==
[~2019-08-01] VITALS: Ht 154.9 cm; Wt 75.0 kg
[~2019-08-01 01:45] MED LIST changes: +ATORVASTATIN CA20 MG PO; +CATAPRES0.1 MG PO; +LANTUS SOL100 UNIT/1 SUB-Q; +PANTOPRAZOLE SO40 MG PO; +SEROQUEL25 MG PO; +SYMBICORT 16010.2 GM INH
--- OUTSIDE RECORDS SUMMARY | 2019-08-01 01:48 | XMS ---
PreManage Notification: JESUS VÁSQUEZ Security Sanitary Aide Events No recent Security Events currently on file CRITERIA MET - [facility] - Has Care Guidelines CARE PROVIDERS DEMARCUS LEMON [facility] 10/24/2018-Current PHONE: [phone] LIZZIE COVINGTON [facility] 09/26/2018-Current PHONE: [phone] Inga has no Care Guidelines for this patient. Care History Medical/Surgical 10/25/2018 [facility] - PATIENT HAS A FOLLOW UP APT WITH DR LEMON ON 11/28/18. E.DAmada VISIT COUNT (12 MO.) 5 [facility]. TOTAL 5 NOTE: Visits indicate total known visits. ED/UCC VISIT TRACKING (12 MO.) 08/01/2019 01:45 [facility] [place] TYPE: Emergency COMPLAINT: - FALL/R HIP PAIN 10/23/2018 15:08 [facility] [place] TYPE: Emergency COMPLAINT: - POST OP PAIN DIAGNOSES: - Personal history of nicotine dependence - Allergy status to other drugs, medicaments and biological sub - Muscle weakness (generalized) - Other custodial (current) drug therapy - Allergy status to analgesic agent status - Allergy status to sulfonamides status - Unspecified mood [affective] disorder - Radiographic dye allergy status - Type 2 diabetes mellitus with diabetic neuropathy, unspecifie - keno terminal operator (current) use of insulin - Allergy status to penicillin - Old myocardial infarction 09/26/2018 14:16 [facility] [place] TYPE: Emergency COMPLAINT: - HIP PAIN DIAGNOSES: - Radiographic dye allergy status - Allergy status to analgesic agent status - Allergy status to penicillin - Pain in right hip - Allergy status to sulfonamides status - Fall on same level, unspecified, initial encounter - Fracture of unspecified part of neck of right femur, initial - Old myocardial infarction - Type 2 diabetes mellitus with diabetic neuropathy, unspecifie - Personal history of nicotine dependence - Allergy status to other drugs, medicaments and biological sub 09/24/2018 16:23 [facility] [place] TYPE: Emergency COMPLAINT: - HIP PAIN/NON INJURY DIAGNOSES: - Dorsalgia, unspecified - Personal history of nicotine dependence - Other long term acute care registered nurse (current) drug therapy - Old myocardial infarction - keno terminal operator (current) use of aspirin - Allergy status to narcotic agent status - Radiographic dye allergy status - Allergy status to analgesic agent status - Pain in right hip - Allergy status to penicillin - Chronic obstructive pulmonary disease, unspecified - Allergy status to sulfonamides status - Type 2 diabetes mellitus with diabetic neuropathy, unspecifie 08/28/2018 10:01 [facility] [place] TYPE: Emergency COMPLAINT: - HIP PAIN NON INJURY DIAGNOSES: - Old myocardial infarction - Acquired absence of both cervix and uterus - Type 2 diabetes mellitus with diabetic neuropathy, unspecifie - Allergy status to sulfonamides status - Allergy status to analgesic agent status - Allergy status to other drugs, medicaments and biological sub - Radiographic dye allergy status - Chronic obstructive pulmonary disease, unspecified - Allergy status to penicillin - keno terminal operator (current) use of insulin - Pain in right hip - Personal history of nicotine dependence - Other long term acute care registered nurse (current) drug therapy INPATIENT VISIT TRACKING (12 MO.) 09/29/2018 13:30 Alejandra MERRITT TYPE: Rehab COMPLAINT: - RIGTH HIP FRACTURE [email or web address]
[2019-08-01] MEDS ORDERED: NORCO 5-325 TA1 EACH PO (04:42)
== END 2019-08-01 05:10 | disposition home or self-care (01) ==
LOC: ED 01:45
DX: T84.020A Dislocation of internal right hip prosthesis, initial encounter (principal); I25.2 Old myocardial infarction; J44.9 Chronic obstructive pulmonary disease, unspecified; E11.40 Type 2 diabetes mellitus with diabetic neuropathy, unspecified; I48.91 Unspecified atrial fibrillation; Z87.891 Personal history of nicotine dependence; Z91.041 Radiographic dye allergy status; Z88.0 Allergy status to penicillin; Z88.2 Allergy status to sulfonamides; Z88.8 Allergy status to other drugs, medicaments and biological substances; Z88.5 Allergy status to narcotic agent; Z79.899 Other long term (current) drug therapy; Z79.4 Long term (current) use of insulin; Z79.82 Long term (current) use of aspirin; Z96.641 Presence of right artificial hip joint; W01.0XXA Fall on same level from slipping, tripping and stumbling without subsequent striking against object, initial encounter
CPT/HCPCS: 27265; 73502; 99156; 99157; 99284-25; J1170; J2405; J2704; J7030

== ENCOUNTER 2020-07-22 20:29 | Emergency (ER) | payer MEDICARE, OTHER ==
[~2020-07-22] VITALS: Ht 154.9 cm; Wt 75.0 kg
[~2020-07-22 20:29] MED LIST changes: -LANTUS SOL100 UNIT/1 SUB-Q
[2020-07-22] MEDS ORDERED: ALDACTONE25 MG PO (20:51)
--- NOTE | 2020-07-23 08:20 | EKG ---
[facility] [address] [facility] [place], [place] [address] Signed Sinus bradycardia Otherwise normal ECG When compared with ECG of 26-SEP-2018 16:04, T wave inversion no longer evident in Anterior leads Confirmed by SERGIO CUELLAR DO ([id number]) on 07/23/2020 8:20:26 AM Electronically Signed By: SERGIO CUELLAR DO 07/23/20 0820 PATIENT NAME: JESUS VÁSQUEZ JANELLE Electrocardiogram DATE OF : 33 PHYSICIAN: SERGIO CUELLAR DO REPORT #: [id number] REPORT IS CONFIDENTIAL AND NOT TO BE RELEASED WITHOUT AUTHORIZATION
== END 2020-07-22 22:40 | disposition home or self-care (01) ==
LOC: ED 20:29
DX: S00.93XA Contusion of unspecified part of head, initial encounter (principal); W19.XXXA Unspecified fall, initial encounter; I25.2 Old myocardial infarction; J44.9 Chronic obstructive pulmonary disease, unspecified; E11.40 Type 2 diabetes mellitus with diabetic neuropathy, unspecified; I48.91 Unspecified atrial fibrillation; Z87.891 Personal history of nicotine dependence; Z88.0 Allergy status to penicillin; Z88.8 Allergy status to other drugs, medicaments and biological substances; Z88.5 Allergy status to narcotic agent; Z88.2 Allergy status to sulfonamides; Z91.041 Radiographic dye allergy status; Z79.899 Other long term (current) drug therapy; Z79.4 Long term (current) use of insulin
CPT/HCPCS: 70450; 71045; 72125; 80053; 81001; 84484; 85025; 85610; 85730; 93005; 93010; 99285-25

== ENCOUNTER 2020-09-16 21:10 | Observation (INO) | payer MEDICARE, OTHER ==
[~2020-09-16] VITALS: Ht 154.9 cm; Wt 70.5 kg
--- NOTE | 2020-09-17 02:45 | NUR ---
PT TO ROOM 111 FROM ED VIA STRETCHER. ALERT AND ORIENTED. 3PA TO TRANSFER FROM STRETCHER TO BED USING HOVER MAT. PT REPORTS RIGHT HIP PAIN 3/10 WHICH IS TOLERABLE. CMS INTACT. CHRONIC O2/2L IN PLACE. SpO2 100%. RESPIRATIONS EVEN. PT ORIENTED TO ROOM AND NURSE CALL LIGHT. WATER AND JUICE PROVIDED. [employer] IN ROOM FOR ADMISSION.
--- NOTE | 2020-09-17 03:24 | NUR ---
CALL LIGHT ANSWERED. PT UP TO BSC WITH 1PA TO VOID. BACK TO BED WITH 2PA AND FWW. PT QUINN FAIR. INCREASED PAIN WITH MOVEMENT IN RIGHT HIP THAT RADIATES TO LEFT SIDE. PRN FOR PAIN ADMINISTERED. PT DENIES FURTHER NEEDS. CALL LIGTH IN REACH.
--- NOTE | 2020-09-17 05:04 | NUR ---
PT RESTING IN BED WITH EYES CLOSED, NAD.
--- NOTE | 2020-09-17 07:20 | NUR ---
Report received from Jaki MAHER. Pt resting in bed with eyes closed, respirations even and unlabored. 2L O2 NC in place. No needs identified, will continue plan of care.
--- NOTE | 2020-09-17 09:00 | NUR ---
Notified by Dr. Hickey, pt is stating she does not need placement and has family members to care for her. Attempted to call spouse and his phone is not active. Called and spoke with daughter, Mila Romeo. She states her dad is unable to care for her mom and the daughter cannot care for her any longer. She states mom cannot go home. Asked if she, her sister, and her dad would like to come in for a family conference to discuss this. They will be here at 1 pm. Trestle Mainternance Laborer updated.
--- NOTE | 2020-09-17 09:45 | NUR ---
Scheduled medications administered, vitals complete. Assessment complete. IVF infusing WNL. Pt oriented to room, educated regarding fall precautions and policies here at hospital, pt agreeable to this. Pt finishing breakfast at this time.
--- NOTE | 2020-09-17 10:31 | NUR ---
Patient got back to her room from physical therapy. I&Os were completed. Patient recieved water. Physical therapy assisted patient to the toilet. SBA to chair.
--- NOTE | 2020-09-17 11:25 | NUR ---
Pt finished with physical therapy, occupational therapy, MD ramirez. Lidocaine patch applied across lower back. IVF infusing WNL. RACHELLE Prasad in room to assist pt with using bathroom. No further needs at this time
[2020-09-17] MEDS ORDERED: LEVOTHYROXINE50 MCG PO (11:27)
[2020-09-17] MEDS ORDERED: LANTUS SOL100 UNIT/1 SUB-Q (12:45)
[2020-09-17] MEDS ORDERED: TORSEMIDE10 MG PO (12:46)
[2020-09-17] MEDS ORDERED: CITALOPRAM HBR20 MG PO (12:49)
--- NOTE | 2020-09-17 13:15 | NUR ---
Rounded on patient who is resting in bed with eyes closed, breathing even and unlabored. on 2L NC O2. No needs identified at this time, awaiting family arrival for care conference with case management. IVF infusing WNL. Call light in reach.
--- NOTE | 2020-09-17 13:45 | NUR ---
Family arrives, spouse, two daughters and Debbies . Discussion of what care spouse can provide. He is using a wc and states he is having difficulty. He feels he cannot care for her at home. RN to room to discuss what pt has been able to do today. She was able to get from the bed to the bathroom without assist. Rn found her getting back into bed after using the bathroom, eventhough she has been asked to always call. Pt was also able [facility]. We discussed pt will not qualify for a SNF if she is able to complete this activity. we then discussed assisted livings and residential care. Daughter Sammi has already spoken with [facility] and they have a room open. Pt and spouse are in agreement to go into assisted living as long as they can go together. We also discussed [facility] and spouse states his sister lives there. Updated the family I called [facility], [facility], [facility], and [facility]. [facility] and [facility] may have bed availability in the near future, others do not. [facility] is waiting to here a their 1 room is taken, it may be available. Family are going to go and see [facility] and [facility]. Discussed Mandy will be discharged today as she does not meet medical need. They will view [facility] and then return and take pt home around 4 pm.
--- NOTE | 2020-09-17 14:30 | NUR ---
Spoke with Sammi, she and dad will go visit [facility]. Plan is to take mom home and family will stay and assist dad with her care until they can enter an [facility]>
--- NOTE | 2020-09-17 14:57 | NUR ---
PATIENT SITTING UP ON EDGE OF BED. HUMAN RESOURCES MGR IN ROOM TALKING TO PATIENT ABOUT MEDICATIONS. CALL LIGHT IN REACH. NO FURTHER NEEDS AT THIS TIME.
--- NOTE | 2020-09-17 15:00 | NUR ---
Rounded on patient who returns from bathroom and sits in bed. She has no needs, discusses plan of care with this RN and reflects on several life experiences, pleasant and conversational. Assessment complete. pt reports no pain at this time. RACHELLE Prasad and Dora in room upon this RN leaving.
--- NOTE | 2020-09-17 15:39 | NUR ---
MED REC COMPLETE
--- NOTE | 2020-09-17 16:06 | NUR ---
Discharge teaching provided to patient who verbalizes understanding about medications, fall prevention, diet, pain control. Pt pleasant and alert and oriented, states no pain or needs. IV removed, VSS, patient dressed and awaiting family to pick her up.
--- NOTE | 2020-09-17 18:40 | EKG ---
[facility] [address] [facility] [place] [address] Signed Sinus rhythm with 1st degree AV block with premature supraventricular complexes Otherwise normal ECG When compared with ECG of 22-JUL-2020 20:41, premature supraventricular complexes are now present Confirmed by SERGIO CEULLAR DO ([id number]) on 09/17/2020 6:40:38 PM Electronically Signed By: SERGIO CUELLAR DO 09/17/20 1840 PATIENT NAME: JESUS VÁSQUEZ JANELLE Electrocardiogram DATE OF : 33 PHYSICIAN: SERGIO CUELLAR DO REPORT #: [id number] REPORT IS CONFIDENTIAL AND NOT TO BE RELEASED WITHOUT AUTHORIZATION
--- NOTE | 2020-09-18 07:41 | NUR ---
Received order for PT/OT. Family would like [facility]. Awaiting dc summary as it was not completed last night. Faxed face sheet, order, dc summary, H&P, PT/OT notes and evals.
== END 2020-09-17 16:40 | disposition home or self-care (01) ==
LOC: ED 21:10 → MS 21:12
PROVIDERS: ADMIT Student in an Organized Health Care Education/Training Program; ATTEND Student in an Organized Health Care Education/Training Program
DX: M25.551 Pain in right hip (principal); J96.11 Chronic respiratory failure with hypoxia; I10 Essential (primary) hypertension; E78.5 Hyperlipidemia, unspecified; J44.9 Chronic obstructive pulmonary disease, unspecified; E03.9 Hypothyroidism, unspecified; E11.40 Type 2 diabetes mellitus with diabetic neuropathy, unspecified; I48.91 Unspecified atrial fibrillation; Z96.643 Presence of artificial hip joint, bilateral; Z20.822 Contact with and (suspected) exposure to COVID-19; Z91.81 History of falling
CPT/HCPCS: 73502; 73700; 80053; 81001; 84484; 85025; 93005; 93010; 94760; 97162; 97166; 99285-25; A9270; C9803; G0378; J7040; J7121; U0003

== ENCOUNTER 2020-11-19 19:23 | Emergency (ER) | payer MEDICARE, OTHER ==
[~2020-11-19] VITALS: Ht 154.9 cm; Wt 70.5 kg
[~2020-11-19 19:23] MED LIST changes: +CITALOPRAM HBR20 MG PO; +LANTUS SOL100 UNIT/1 SUB-Q; +LEVOTHYROXINE50 MCG PO; +TORSEMIDE10 MG PO
[2020-11-19] MEDS ORDERED: DOXYCYCLINE HY100 MG PO (22:23)
== END 2020-11-19 23:05 | disposition home or self-care (01) ==
LOC: ED 19:23
DX: S80.01XA Contusion of right knee, initial encounter (principal); M25.512 Pain in left shoulder; M54.2 Cervicalgia; I25.2 Old myocardial infarction; E11.40 Type 2 diabetes mellitus with diabetic neuropathy, unspecified; E78.00 Pure hypercholesterolemia, unspecified; Z87.891 Personal history of nicotine dependence; Z90.710 Acquired absence of both cervix and uterus; Z96.643 Presence of artificial hip joint, bilateral; Z91.048 Other nonmedicinal substance allergy status; Z88.0 Allergy status to penicillin; Z88.2 Allergy status to sulfonamides; Z88.5 Allergy status to narcotic agent; Z88.8 Allergy status to other drugs, medicaments and biological substances; Z79.4 Long term (current) use of insulin; Z79.899 Other long term (current) drug therapy; W18.30XA Fall on same level, unspecified, initial encounter
CPT/HCPCS: 70450; 72125; 73030; 73560; 99284-25

== ENCOUNTER 2020-12-01 06:13 | Emergency (ER) | payer MEDICARE, OTHER ==
[~2020-12-01] VITALS: Ht 154.9 cm; Wt 68.0 kg
--- OUTSIDE RECORDS SUMMARY | 2020-12-01 06:16 | XMS ---
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 Care History Medical/Surgical 10/25/2018 [facility] - PATIENT HAS A FOLLOW UP APT WITH DR LEMON ON 11/28/18. E.D. VISIT COUNT (12 MO.) 4 [facility] TOTAL 4 NOTE: Visits indicate total known visits. ED/UCC VISIT TRACKING (12 MO.) 12/01/2020 06:14 [facility] [place] TYPE: Emergency COMPLAINT: - FALL HEAD INJURY 11/19/2020 19:23 [facility] [place] TYPE: Emergency COMPLAINT: - FALL DIAGNOSES: - Contusion of right knee, initial encounter - Personal history of nicotine dependence - Other buttermaker helper (current) drug therapy - Headache, unspecified - Old myocardial infarction - buttermaker helper (current) use of insulin - Other nonmedicinal substance allergy status - Allergy status to other drugs, medicaments and biological substances - Allergy status to sulfonamides - Allergy status to narcotic agent - Pain in left shoulder - Cervicalgia - Type 2 diabetes mellitus with diabetic neuropathy, unspecified - Pure hypercholesterolemia, unspecified - Acquired absence of both cervix and uterus - Fall on same level, unspecified, initial encounter - Allergy status to penicillin - Presence of artificial hip joint, bilateral 09/16/2020 21:11 [facility] [place] TYPE: Emergency COMPLAINT: - GLF 07/22/2020 20:30 [facility] [place] TYPE: Emergency COMPLAINT: - WEAKNESS DIAGNOSES: - Chronic obstructive pulmonary disease, unspecified - Old myocardial infarction - Allergy status to other drugs, medicaments and biological substances - Allergy status to penicillin - Radiographic dye allergy status - Other buttermaker helper (current) drug therapy - Type 2 diabetes mellitus with diabetic neuropathy, unspecified - USP (current) use of insulin - Unspecified fall, initial encounter - Allergy status to sulfonamides - Allergy status to narcotic agent - Contusion of unspecified part of head, initial encounter - Unspecified atrial fibrillation - Personal history of nicotine dependence INPATIENT VISIT TRACKING (12 MO.) 09/16/2020 21:12 [facility] [place] TYPE: Observation COMPLAINT: - RT HIP PAIN RLT FALLS DIAGNOSES: - Pain in right hip - Unspecified atrial fibrillation - Chronic obstructive pulmonary disease, unspecified - Hyperlipidemia, unspecified - History of falling - Presence of artificial hip joint, bilateral - Type 2 diabetes mellitus with diabetic neuropathy, unspecified - Chronic respiratory failure with hypoxia - Hypothyroidism, unspecified - Essential (primary) hypertension [email or web address]
== END 2020-12-01 10:30 | disposition short-term general hospital (02) ==
LOC: ED 06:13
DX: S01.81XA Laceration without foreign body of other part of head, initial encounter (principal); S14.109A Unspecified injury at unspecified level of cervical spinal cord, initial encounter; R00.1 Bradycardia, unspecified; E11.40 Type 2 diabetes mellitus with diabetic neuropathy, unspecified; E11.649 Type 2 diabetes mellitus with hypoglycemia without coma; W22.8XXA Striking against or struck by other objects, initial encounter; Z20.822 Contact with and (suspected) exposure to COVID-19; I25.2 Old myocardial infarction; J44.9 Chronic obstructive pulmonary disease, unspecified; E78.00 Pure hypercholesterolemia, unspecified; Z87.891 Personal history of nicotine dependence; Z88.8 Allergy status to other drugs, medicaments and biological substances; Z88.0 Allergy status to penicillin; Z88.2 Allergy status to sulfonamides; Z88.5 Allergy status to narcotic agent; Z91.041 Radiographic dye allergy status; Z79.899 Other long term (current) drug therapy; Z79.4 Long term (current) use of insulin
CPT/HCPCS: 70450; 71250; 72125; 74176; 80053; 83605; 85025; 96374; 96376; 99285-25; C9803; J3010; J3480; U0003

== ENCOUNTER 2021-01-15 20:16 | Emergency (ER) | payer MEDICARE, OTHER ==
[~2021-01-15] VITALS: Ht 154.9 cm; Wt 67.6 kg
[~2021-01-15 20:16] MED LIST changes: +CEPHALEXIN500 MG PO; +HYDROCODON-ACE1 EAC8 PO; +ROBAXIN100 MG/1 M INJ; +VALIUM5 MG PO
--- OUTSIDE RECORDS SUMMARY | 2021-01-15 20:18 | XMS ---
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 Care History Medical/Surgical 10/25/2018 [facility] - PATIENT HAS A FOLLOW UP APT WITH DR LEMON ON 11/28/18. [facility] NOTE: Visits indicate total known visits. 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 - Laceration without foreign body of other part of head, initial encounter - Type 2 diabetes mellitus with hypoglycemia without coma - 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 - Pure hypercholesterolemia, unspecified - Allergy status to other drugs, medicaments and biological substances - Unspecified injury at unspecified level of cervical spinal cord, initial encounter - Personal history of nicotine dependence - Allergy status to narcotic agent - Allergy status to penicillin 11/19/2020 19:23 [facility] [place] TYPE: Emergency COMPLAINT: - FALL DIAGNOSES: - Contusion of right knee, initial encounter - Personal history of nicotine dependence - Other fci (current) drug therapy - Headache, unspecified - Old myocardial infarction - senior care (current) use of insulin - Other nonmedicinal [...] - Radiographic dye allergy status - Other fci (current) drug therapy - Type 2 diabetes mellitus with diabetic neuropathy, unspecified - 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 - Unspecified fall, initial encounter - Allergy status to sulfonamides - Allergy status to narcotic agent - Contusion of unspecified part of head, initial encounter - Unspecified atrial fibrillation - Personal history of nicotine dependence INPATIENT VISIT TRACKING (12 MO.) 12/01/2020 11:52 [facility] TYPE: Neuro Surgery DIAGNOSES: - Fall on same level, unspecified, initial encounter - 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 spinal cord, initial encounter - Spinal stenosis, cervical region - Other specified postprocedural states - Spinal stenosis, site unspecified - Unspecified injury at C1 level of cervical spinal cord, initial encounter - Encounter for other preprocedural examination - Other specified injuries of unspecified part of neck, initial encounter - Unspecified symptoms and signs involving the nervous system 09/16/2020 21:12 [facility] TYPE: Observation COMPLAINT: - RT HIP PAIN RLT FALLS DIAGNOSES: - Pain in right hip - Unspecified atrial fibrillation - Chronic obstructive pulmonary disease, unspecified - Hyperlipidemia, unspecified - History of falling - Presence of artificial hip joint, bilateral - Type 2 diabetes mellitus with diabetic neuropathy, unspecified - Chronic respiratory failure with hypoxia - Hypothyroidism, unspecified - Essential (primary) hypertension [email or web address]
--- NOTE | 2021-01-16 21:18 | EKG ---
[facility] [address] [facility] [place], [place] [address] Signed Sinus bradycardia Otherwise normal ECG When compared with ECG of 16-SEP-2020 22:08, premature supraventricular complexes are no longer present Confirmed by SERGIO CUELLAR DO ([id number]) on 01/16/2021 9:18:40 PM Electronically Signed By: SERGIO CUELLAR DO 01/16/218 PATIENT NAME: JESUS VÁSQUEZ JANELLE Electrocardiogram DATE OF : 33 PHYSICIAN: SERGIO CUELLAR DO REPORT #: [id number] REPORT IS CONFIDENTIAL AND NOT TO BE RELEASED WITHOUT AUTHORIZATION
== END 2021-01-15 23:27 | disposition home or self-care (01) ==
LOC: ED 20:16
DX: R07.9 Chest pain, unspecified (principal); I25.2 Old myocardial infarction; J44.9 Chronic obstructive pulmonary disease, unspecified; E11.40 Type 2 diabetes mellitus with diabetic neuropathy, unspecified; M10.9 Gout, unspecified; E78.00 Pure hypercholesterolemia, unspecified; Z87.891 Personal history of nicotine dependence; Z88.8 Allergy status to other drugs, medicaments and biological substances; Z88.5 Allergy status to narcotic agent; Z88.1 Allergy status to other antibiotic agents; Z88.0 Allergy status to penicillin; Z91.041 Radiographic dye allergy status; Z79.899 Other long term (current) drug therapy; Z79.4 Long term (current) use of insulin
CPT/HCPCS: 71045; 80053; 83735; 84484; 85025; 93005; 93010; 99285-25; J7040